=== PATIENT | female | born 1950 | race African-American/Black ===

== ENCOUNTER 2018-12-31 20:01 | Inpatient (IN) | payer MEDICAID ==
[~2018-12-31] VITALS: Ht 160 cm; Wt 43.6 kg
[2018-12-31] MEDS ORDERED: SODIUM CHLORIDE 0.9% 1000ML BAG (SEPSIS BOLUS) IV ONE (20:15)
[2018-12-31] MEDS ORDERED: LEVETIRACETAM 500MG PREMIX 100 ML IV ONE (20:15)
[2018-12-31] MEDS ORDERED: PIPERACILLIN/TAZ 3.375G PREMIX 50 ML IV ONE (20:15)
[2018-12-31] MEDS ORDERED: VANCOMYCIN 1 G PREMIX 200 ML IV ONE (20:15)
[2018-12-31 22:07] LABS: CHLORIDE 110 mEq/L (98-107)
[2018-12-31 22:09] LABS: BASOPHILS % 0.2 % (0.0-2.0); EOSINOPHILS % 0.5 % (0.0-5.0); HEMOGLOBIN. 14.2 g/dL (12.0-16.0); LYMPHOCYTES % 12.5 % (20.0-50.0); MEAN CORPUSCULAR VOLUME 90.7 fL (81.0-99.0); MEAN PLATELET VOLUME 8.7 fl (7.4-10.4); MONOCYTES % 5.5 % (2.0-8.0); NEUTROPHILS % 81.3 % (40.0-76.0); PLATELET 179 x1000/uL (130-400); RED BLOOD CELL COUNT 4.74 mill/uL (4.2-5.4); RED CELL DISTRIBUTION WIDTH 13.9 % (11.6-14.6)
[2018-12-31 22:14] LABS: ETHANOL BLOOD < 10 mg/dL
[2018-12-31 22:20] LABS: CARBAMAZEPINE < 0.5 ug/mL (4-12); PHENOBARBITAL < 2.1 ug/mL (15.0-40.0); VALPROIC ACID < 3.0 ug/mL (50-100)
[2019-01-01] VITALS (50 sets, daily range): BP systolic 65–146; BP diastolic 15–104
[2019-01-01 00:02] LABS: CHLORIDE 110 mEq/L (98-107)
[2019-01-01 00:06] LABS: PARTIAL THROMBOPLASTIN TIME 23.9 sec (23.4-31.0); PROTHROMBIN TIME 10.7 sec (9.6-11.0)
[2019-01-01 00:09] LABS: ETHANOL BLOOD < 10 mg/dL
[2019-01-01 00:12] LABS: CARBAMAZEPINE < 0.5 ug/mL (4-12); PHENOBARBITAL < 2.1 ug/mL (15.0-40.0); VALPROIC ACID < 3.0 ug/mL (50-100)
[2019-01-01] MEDS ORDERED: ONDANSETRON HCL 4MG/2ML INJ IV PRN (01:00)
[2019-01-01] MEDS ORDERED: LORAZEPAM 2MG/ML CPJ IV PRN (01:00)
[2019-01-01] MEDS ORDERED: ACETAMINOPHEN 325MG TABLET PO PRN (01:00)
[2019-01-01] MEDS ORDERED: NOREPINEPHRINE 4 MG in DEXT 5% WATER 246 ML IV ONE (01:15)
[2019-01-01] MEDS ORDERED: SODIUM CHLORIDE 0.9% 1,000 ML IV ONE (01:15)
[2019-01-01 01:44] LABS: CLARITY URINE CLOUDY (CLEAR); COLOR URINE YELLOW (YELLOW); KETONES URINE NEGATIVE (NEGATIVE); LEUKOCYTE ESTERASE URINE 2+ (NEGATIVE); NITRITE URINE NEGATIVE (NEGATIVE); OCCULT BLOOD URINE TRACE (NEGATIVE); PROTEIN URINE NEGATIVE (NEGATIVE)
[2019-01-01] MEDS ORDERED: POTASSIUM CHLORIDE INJ 40 MEQ in DEXT 5% WATER 250 ML IV SCH (02:00)
[2019-01-01] MEDS ORDERED: CEFTRIAXONE 1 G PREMIX 50 ML IV SCH (02:00)
[2019-01-01 02:24] LABS: *AMPHETAMINES SCREEN URINE NEGATIVE (NEGATIVE); *BARBITURATES SCREEN URINE NEGATIVE (NEGATIVE); *BENZODIAZEPINES SCREEN URINE PRESUMTIVE POSITIVE (NEGATIVE); *COCAINE SCREEN URINE NEGATIVE (NEGATIVE)
[2019-01-01 02:25] LABS: CANNABINOID URINE SCREEN NEGATIVE (NEGATIVE); METHADONE URINE SCREEN NEGATIVE (NEGATIVE); OPIATES URINE SCREEN NEGATIVE (NEGATIVE); PHENCYCLIDINE URINE SCREEN NEGATIVE (NEGATIVE)
[2019-01-01] MEDS ORDERED: NOREPINEPHRINE 4MG/250ML PMX 250 ML IV SCH (02:30)
[2019-01-01] MEDS ORDERED: LIDOCAINE HCL 1% 20ML VIAL (Pyxis) INJ ONE (08:51)
[2019-01-01] MEDS: LEVETIRACETAM 500MG TABLET PO SCH ×2 (12:38→20:49)
[2019-01-01] MEDS ORDERED: PHENYTOIN SODIUM 1,000 MG in SODIUM CHLORIDE 0.9% 100 ML IV SCH (14:00)
[2019-01-01] MEDS: MIDODRINE HCL 5MG TABLET PO SCH ×2 (14:48→17:59)
[2019-01-01] MEDS ORDERED: NOREPINEPHRINE 4 MG in DEXT 5% WATER 246 ML IV PRN (20:45)
[2019-01-01] MEDS ORDERED: PHENYTOIN SODIUM EXTENDED 100MG CAPSULE PO SCH (21:00)
[2019-01-02] VITALS (67 sets, daily range): BP systolic 88–147; BP diastolic 39–123
[2019-01-02] MEDS: CEFTRIAXONE 1 G PREMIX 50 ML IV SCH (03:31)
[2019-01-02 05:48] LABS: HEMOGLOBIN. 12.8 g/dL (12.0-16.0); MEAN CORPUSCULAR HEMOGLOBIN 30.3 pg (28.0-32.0); MEAN CORPUSCULAR VOLUME 89.7 fL (81.0-99.0); PLATELET 217 x1000/uL (130-400); RED BLOOD CELL COUNT 4.24 mill/uL (4.2-5.4); RED CELL DISTRIBUTION WIDTH 14.1 % (11.6-14.6)
[2019-01-02 05:58] LABS: CHLORIDE 109 mEq/L (98-107)
[2019-01-02] MEDS: MIDODRINE HCL 5MG TABLET PO SCH ×3 (09:15→18:14)
[2019-01-02] MEDS: LEVETIRACETAM 500MG TABLET PO SCH ×2 (09:15→21:21)
[2019-01-02] MEDS: OMEPRAZOLE 20MG CAPSULE EXTENDED RELEASE PO SCH (12:35)
[2019-01-02 14:28] LABS: PLATELET ESTIMATE NORMAL
[2019-01-03] VITALS (20 sets, daily range): BP systolic 84–152; BP diastolic 38–109
[2019-01-03] MEDS: CEFTRIAXONE 1 G PREMIX 50 ML IV SCH (02:54)
[2019-01-03 06:29] LABS: CHLORIDE 109 mEq/L (98-107)
[2019-01-03 06:56] LABS: BASOPHILS % 0.3 % (0.0-2.0); EOSINOPHILS % 1.2 % (0.0-5.0); HEMATOCRIT. 36.7 % (36.0-48.0); HEMOGLOBIN. 12.6 g/dL (12.0-16.0); LYMPHOCYTES % 22.4 % (20.0-50.0); MEAN CORPUSCULAR HEMOGLOBIN 30.5 pg (28.0-32.0); MEAN CORPUSCULAR VOLUME 88.5 fL (81.0-99.0); MEAN PLATELET VOLUME 8.9 fl (7.4-10.4); MONOCYTES % 6.7 % (2.0-8.0); NEUTROPHILS % 69.4 % (40.0-76.0); PLATELET 171 x1000/uL (130-400); RED BLOOD CELL COUNT 4.15 mill/uL (4.2-5.4); RED CELL DISTRIBUTION WIDTH 13.9 % (11.6-14.6)
[2019-01-03] MEDS: LEVETIRACETAM 500MG TABLET PO SCH (08:36)
[2019-01-03] MEDS: OMEPRAZOLE 20MG CAPSULE EXTENDED RELEASE PO SCH (08:36)
[2019-01-03] MEDS: MIDODRINE HCL 5MG TABLET PO SCH ×2 (08:37→14:43)
[2019-01-03] MEDS ORDERED: PHEN100C12 MT (16:18)
[2019-01-03] MEDS ORDERED: KEPP500 PO (16:18)
[2019-01-03] MEDS ORDERED: NITR-87 MT (16:18)
== END 2019-01-03 17:53 | disposition home or self-care (01) | DRG 720 ==
LOC: ER 20:01 → EDBEDREQTM 22:43 → EDBEDREQ 22:43 → EDBEDREQSVC 01-01 01:13 → EDBEDREQDT 01-01 01:13 → EDBEDREQTM 01-01 01:13 → ENRESERV 01-01 07:21 → CVICU 01-01 08:36 → 7WST 01-03 12:07
PROVIDERS: ADMIT Internal Medicine; ATTEND Internal Medicine
PROC: 02HV33Z Insertion of Infusion Device into Superior Vena Cava, Percutaneous Approach (ICD-10-PCS; principal; 2019-01-01)
PROC: B548ZZA Ultrasonography of Superior Vena Cava, Guidance (ICD-10-PCS; 2019-01-01)
DX: A41.9 Sepsis, unspecified organism (principal); R65.21 Severe sepsis with septic shock; E87.2 Acidosis; E44.1 Mild protein-calorie malnutrition; E87.8 Other disorders of electrolyte and fluid balance, not elsewhere classified; E87.6 Hypokalemia; G40.909 Epilepsy, unspecified, not intractable, without status epilepticus; N39.0 Urinary tract infection, site not specified; Z68.1 Body mass index [BMI] 19.9 or less, adult
CPT/HCPCS: 36415; 36573; 71045; 80048; 80156; 80165; 80184; 80185; 80305; 80320; 81003; 82962; 83036; 83605; 83880; 84484; 93005; 93970; 96365; 99291; C1725; J0696; J1165; J1953; J2405; J2543; J3370; J3480; J3490; J7030; J7050; J7060; A4315; G0480

== ENCOUNTER 2019-09-22 20:55 | Emergency (ER) | payer MEDICAID ==
[~2019-09-22] VITALS: Ht 162.6 cm; Wt 55.0 kg
[~2019-09-22 20:55] MED LIST: KEPP500 PO; NITR-87 MT; PHEN100C12 MT
[2019-09-22] MEDS ORDERED: LEVETIRACETAM 500MG PREMIX 100 ML IV ONE (21:15)
[2019-09-22 21:39] LABS: BASOPHILS % 0.3 % (0.0-2.0); EOSINOPHILS % 1.5 % (0.0-5.0); HEMATOCRIT. 30.5 % (36.0-48.0); HEMOGLOBIN. 10.4 g/dL (12.0-16.0); LYMPHOCYTES % 23.6 % (20.0-50.0); MEAN CORPUSCULAR HEMOGLOBIN 30.6 pg (28.0-32.0); MEAN CORPUSCULAR VOLUME 89.6 fL (81.0-99.0); MEAN PLATELET VOLUME 7.7 fl (7.4-10.4); MONOCYTES % 8.3 % (2.0-8.0); NEUTROPHILS % 66.3 % (40.0-76.0); PLATELET 162 x1000/uL (130-400); RED CELL DISTRIBUTION WIDTH 16.3 % (11.6-14.6)
[2019-09-22 21:44] LABS: CHLORIDE 105 mEq/L (98-107)
[2019-09-22 21:48] LABS: ETHANOL BLOOD < 10 mg/dL
[2019-09-22] MEDS ORDERED: SODIUM CHLORIDE 0.9% 1,000 ML IV ONE (21:57)
[2019-09-22] MEDS ORDERED: PHENYTOIN 100 MG/4 ML UDC NG ONE (22:45)
[2019-09-22] MEDS ORDERED: POTASSIUM CHLORIDE 20MEQ TABLET SR PO ONE (23:45)
[2019-09-23 01:22] VITALS: BP 112/78
== END 2019-09-23 01:30 | disposition home or self-care (01) ==
LOC: ER 21:00
DX: G93.40 Encephalopathy, unspecified (principal); R55 Syncope and collapse; E87.6 Hypokalemia; G40.909 Epilepsy, unspecified, not intractable, without status epilepticus; E11.9 Type 2 diabetes mellitus without complications; Z79.899 Other long term (current) drug therapy
CPT/HCPCS: 36415; 70450; 80053; 80185; 80320; 85025; 93005; 96361; 96365; 99285; J1953; J7030; G0480